=== PATIENT | male | born 1970 ===

== ENCOUNTER → 2021-04-23 | Outpatient (CLI) | payer OTHER ==
--- NOTE | 2021-04-23 16:07 | RAD ---
EXAM: Right elbow, 3 views. HISTORY: Pain. COMPARISON: None. FINDINGS: 3 views of the right elbow are obtained. There is no fracture, dislocation or subluxation. There is no joint effusion. IMPRESSION: No acute osseous finding. Electronically signed by: Nidhi Diallo MD (04/23/2021 4:05 PM) [id number]
== END ==
LOC: RAD 15:52
PROVIDERS: ATTEND Physician Assistant
DX: M25.521 Pain in right elbow (principal)
CPT/HCPCS: 73080

== ENCOUNTER 2021-05-17 10:58 | Emergency (ER) | payer BC, OTHER ==
[~2021-05-17] VITALS: Ht 175.3 cm; Wt 84.0 kg
--- NOTE | 2021-05-17 11:24 | EKG ---
[address] [address] Test Date: 2021-05-17 Test Time: 11:14:16 Pat Name: JAYME BRADLEY Department: Room: Gender: M Hospice Consultant: DULCE : 1970 Requested By: ROSE MARIE SUERO Order Number: [id number] Reading MD: Stalin Domingo MD Measurements Intervals [place] Rate: 68 P: 47 AK: 178 QRS: 70 QRSD: 96 T: 36 QT: 358 QTc: 385 Interpretive Statements SINUS RHYTHM Electronically Signed On 05-20-2021 9:30:57 SCOUT LEASER by Stalin Domingo MD
[2021-05-17] MEDS ORDERED: ASPIRIN 325 MG TABLET PO ONE (11:30)
[2021-05-17 11:41] LABS: BASO % 0 % (0-3); EOS # 0.1 x10^3/uL (0.0-0.7); EOS % 1 % (0-3); HEMATOCRIT 45.3 % (39.0-53.0); HEMOGLOBIN 14.8 g/dL (13.0-17.5); LYMPH # 1.7 x10^3/uL (1.0-4.8); LYMPH % 22 % (24-48); MEAN CORPUSCULAR HEMOGLOBIN 28 pg (25-35); MEAN CORPUSCULAR HGB CONC 33 g/dL (31-37); MEAN CORPUSCULAR VOLUME 86 fL (79-100); MONO # 0.7 x10^3/uL (0.0-1.1); MONO % 9 % (0-9); NEUT # 5.3 x10^3uL (1.8-7.7); NEUT % 68 % (31-73); PLATELET COUNT 216 x10^3/uL (140-400); RED CELL DISTRIBUTION WIDTH 13.7 % (11.5-14.5); WHITE BLOOD COUNT 7.8 x10^3/uL (4.0-11.0)
[2021-05-17 11:48] LABS: CALCIUM 9.4 mg/dL (8.5-10.1); GFR 79.4
[2021-05-17 11:49] LABS: BACTERIA,URINE 0 /HPF (0-FEW); BILIRUBIN,URINE NEG (NEG); CLARITY,URINE CLEAR; COLOR,URINE YELLOW; GLUCOSE,URINE NEG (NEG); NITRITE,URINE NEG (NEG); SQUAMOUS EPITHELIAL CELL,UR OCC /LPF; UROBILINOGEN,URINE 0.2 mg/dL (0.2 mg/dL); WBC,URINE OCC /HPF (0-4)
[2021-05-17 12:04] LABS: ALBUMIN 3.9 g/dL (3.4-5.0); ALBUMIN/GLOBULIN RATIO 1.2 (1.0-1.7); MAGNESIUM 2.2 mg/dL (1.8-2.4); TOTAL BILIRUBIN 0.3 mg/dL (0.2-1.0); TOTAL PROTEIN 7.1 g/dL (6.4-8.2)
--- NOTE | 2021-05-17 12:17 | PHYS DOC ---
Past History Past Medical History: Anxiety, Hypertension Past Surgical History: No Surgical History Smoking: Non-smoker Alcohol Use: Occasionally Drug Use: None General Adult EDM: Chief Complaint: CHEST PAIN HPI: HPI: Mr. Falcon is a 50 yo male with PMH of HTN who presents to the ED for left foot and left chest pain. Patient states the left foot pain initially started two and half weeks ago and while the doctor arranged an appointment, he was started on Aspirin 325 mg. While on aspirin, he started developing knots on the left foot near the toes and noticed some right hip pain. Two days ago, he was able to see his doctor whom prescribed valsartan to manage his hypertension. As the days p rogressed, he noticed worsening of the left foot pain along with chest pain. He states the chest pain is constant, dull in nature and travels to the left axilla and feels as if someone is sitting on him. In addition, patient is endorsing shortness of breath, right hip pain and generalized weakness. Review of Systems: Review of Systems: Constitutional: Denies fever or chills Eyes: Denies redness or eye pain HENT: Denies nasal congestion or sore throat Respiratory: Denies cough, endorses shortness of breath with inspiration Cardiovascular: Endorses chest pain or palpitations GI: Denies abdominal pain, nausea, or vomiting : Denies dysuria or hematuria Musculoskeletal: Endorses back pain or joint pain Integument: Denies rash or skin lesions Neurologic: Denies headache, focal weakness or sensory changes Complete systems were reviewed and found to be within normal limits, except as documented in this note. Current Medications: Current Meds: Current Medications Medications (Trade) Dose Ordered Sig/[facility] Start Time Stop Time Status Last Admin Dose Admin Aspirin (Fany Aspirin) 325 mg 1X ONCE 05/17/21 11:30 05/17/21 11:31 UNV Allergies: Allergies: penicillin Physical Exam: PE: Constitutional: Well developed, well nourished, no acute distress, non-toxic appearance. [] HENT: Normocephalic, atraumatic, bilateral external ears normal, oropharynx moist, no oral exudates, nose normal. [] Eyes: PERRLA, EOMI, conjunctiva normal, no discharge. [] Neck: Normal range of motion, no tenderness, supple, no stridor. [] Cardiovascular:Heart rate regular rhythm, no murmur [] Lungs & Thorax: Bilateral breath sounds clear to auscultation [] Abdomen: Bowel sounds normal, soft, no tenderness, no masses, no pulsatile masses. [] Skin: Warm, dry, no erythema, no rash. [] Back: No tenderness, no CVA tenderness. [] Extremities: No tenderness, no cyanosis, no clubbing, ROM intact, no edema. [] Neurologic: Alert and oriented X 3, normal motor function, normal sensory function, no focal deficits noted. [] Psychologic: Affect normal, judgement normal, mood normal. [] Current Patient Data: Labs: Laboratory Tests Test 05/17/21 11:21 05/17/21 11:23 White Blood Count 7.8 x10^3/uL (4.0-11.0) Red Blood Count 5.30 x10^6/uL (4.30-5.70) Hemoglobin 14.8 g/dL (13.0-17.5) Hematocrit 45.3 % (39.0-53.0) Mean Corpuscular Volume 86 fL (79-100) Mean Corpuscular Hemoglobin 28 pg (25-35) Mean Corpuscular Hemoglobin Concent 33 g/dL (31-37) Red Cell Distribution Width 13.7 % (11.5-14.5) Platelet Count 216 x10^3/uL (140-400) Neutrophils (%) (Auto) 68 % (31-73) Lymphocytes (%) (Auto) 22 % (24-48) L Monocytes (%) (Auto) 9 % (0-9) Eosinophils (%) (Auto) 1 % (0-3) Basophils (%) (Auto) 0 % (0-3) Neutrophils # (Auto) 5.3 x10^3uL (1.8-7.7) Lymphocytes # (Auto) 1.7 x10^3/uL (1.0-4.8) Monocytes # (Auto) 0.7 x10^3/uL (0.0-1.1) Eosinophils # (Auto) 0.1 x10^3/uL (0.0-0.7) Basophils # (Auto) 0.0 x10^3/uL (0.0-0.2) Sodium Level 140 mmol/L (136-145) Potassium Level 4.0 mmol/L (3.5-5.1) Chloride Level 103 mmol/L (98-107) Carbon Dioxide Level 31 mmol/L (21-32) Anion Gap 6 (6-14) Blood Urea Nitrogen 16 mg/dL (8-26) Creatinine 1.0 mg/dL (0.7-1.3) Estimated GFR (Cockcroft-Gault) 79.4 BUN/Creatinine Ratio 16 (6-20) Glucose Level 106 mg/dL (70-99) H Calcium Level 9.4 mg/dL (8.5-10.1) Magnesium Level Pending Total Bilirubin Pending Aspartate Amino Transferase (AST) Pending Alanine Aminotransferase (ALT) Pending Alkaline Phosphatase Pending Creatine Kinase Pending Creatine Kinase MB (Mass) Pending Creatine Kinase MB Relative Index Pending Troponin I High Sensitivity < 4 ng/L (4-75) L YT-Ddc-Y-Type Natriuretic Peptide Pending Total Protein Pending Albumin Pending Albumin/Globulin Ratio Pending Lipase Pending Urine Collection Type Unknown Urine Color Yellow Urine Clarity Clear Urine pH 6.0 Urine Specific [place] 1.025 Urine Protein Neg (NEG-TRACE) Urine Glucose (UA) Neg mg/dL (NEG) Urine Ketones (Stick) Neg mg/dL (NEG) Urine Blood Trace (NEG) Urine Nitrite Neg (NEG) Urine Bilirubin Neg (NEG) Urine Urobilinogen Dipstick 0.2 mg/dL (0.2 mg/dL) Urine Leukocyte Esterase Neg (NEG) Urine RBC 3-5 /HPF (0-2) Urine WBC Occ /HPF (0-4) Urine Squamous Epithelial Cells Occ /LPF Urine Bacteria 0 /HPF (0-FEW) Urine Mucus Mod /LPF Vital Signs: Vital Signs Date Time Temp Pulse Resp B/P (MAP) Pulse Ox O2 Delivery O2 Flow Rate FiO2 05/17/21 11:11 98.0 80 16 135/95 (108) 97 Room Air EKG: EKG: @11:14 Normal sinus rhythm, regular rate (68bpm), QRS 96ms, QT/QTc 358/385 ms, mild J point elevations at V2 and V3 without any reciprocal depression; no ST segment elevations Radiology/Procedures: Radiology/Procedures: PROCEDURE: VENOUS LOWER EXTREMITY LEFT EXAMINATION: US DPLX VENOUS EXTREMITY LOWER LT (LOWER EXTREMITY VENOUS ULTRASOUND) CLINICAL HISTORY: Left lower extremity pain. TECHNIQUE: Sonographic grayscale images obtained of the left lower extremity deep venous system with color flow Doppler, compression, and augmentation techniques as indicated. Images obtained and stored in a permanent archive. COMPARISON: None FINDINGS: No evidence of absent flow or incompressibility within the common femoral vein, femoral vein, or popliteal vein. Visualized calf veins appear patent on limited evaluation. IMPRESSION: No evidence of left lower extremity DVT. Electronically signed by: Gareth Contreras DO (05/17/2021 12:20 PM) [id number] PROCEDURE: FOOT LEFT 3V XR FOOT_LEFT 3 VIEWS History: Reason: pain/bruising, FOREFOOT, NO KNOWN INJURY / Spl. Instructions: / History: Technique: 3 views left foot Comparison: None. Findings: Normal alignment. No acute fracture. Well-corticated ossifications inferior to the cuboid. Accessory navicula. Impression: 1. No acute osseous abnormality. Electronically signed by: Mohan Mendieta DO (05/17/2021 12:23 PM) [id number] PROCEDURE: CHEST AP ONLY XR CHEST 1V History: Reason: chest pain / Spl. Instructions: / History: Comparison: None. Findings: No consolidation or pleural effusion. Normal heart size. No pneumothorax. Impression: 1. No acute cardiopulmonary process. Electronically signed by: Mohan Mendieta DO (05/17/2021 1:15 PM) [id number] Heart Score: C/O Chest Pain: Yes HEART Score for Chest Pain: HEART Score for Chest Pain Response (Comments) Value History Moderately Suspicious 1 ECG Normal 0 Age >45 - < 65 1 Risk Factors 1 or 2 Risk Factors 1 Total 3 Risk Factors: Risk Factors: DM, Current or recent (<one month) smoker, HTN, HLP, family history of CAD, obesity. Risk Scores: Score 0 - 3: 2.5% MACE over next 6 weeks - Discharge Home Score 4 - 6: 20.3% MACE over next 6 weeks - Admit for Clinical Observation Score 7 - 10: 72.7% MACE over next 6 weeks - Early Invasive Strategies Course & Med Decision Making: Course & Med Decision Making Mr. Falcon is a 50 yo male with PMH of HTN who presents to the ED for left foot and left chest pain. Upon admission, a EKG, CBC, CMP, LLE ultrasound and X-ray, troponins, D-dimer and chest X-ray were ordered. CBC and CMP did not display any abnormalities while EKG displayed Normal sinus rhythm, regular rate (68bpm), QRS 96ms, QT/QTc 358/385 ms, mild J point elevations at V2 and V3 without any reciprocal depression; no ST segment elevations. Pertinent Labs and Imaging studies reviewed. (See chart for details) [] Dragon Disclaimer: Dragon Disclaimer: This electronic medical record was generated, in whole or in part, using a voice recognition dictation system. Splinting Splinting : Location: Left foot Pre-Made Type: KARTHIK bandage Pre-Proc Neuro Vasc Exam: normal Post-Proc Neuro Vasc Exam: normal, unchanged from pre-exam Departure Departure: Impression: Primary Impression: Atypical chest pain Additional Impression: Hematoma of left foot Disposition: 01 HOME / SELF CARE / HOMELESS Condition: STABLE Referrals: DONOVAN TIPTON (PCP) Patient Instructions: Chest Pain (Nonspecific), Gnpr-ed-Tpej, Hematoma, Sfna-gi-Odor, Knee Wraps (Elastic Bandage) and RICE Additional Instructions: Take [id number] ibuprofen and or Tylenol for pain or discomfort. Ice area of swelling and bruising 20 minutes on then leave off for next 20 minutes. Repeat several times daily for the next 2 days. ROSE MARIE SUERO DO May 17, 2021 12:17
--- NOTE | 2021-05-17 12:23 | RAD ---
EXAMINATION: US DPLX VENOUS EXTREMITY LOWER LT (LOWER EXTREMITY VENOUS ULTRASOUND) CLINICAL HISTORY: Left lower extremity pain. TECHNIQUE: Sonographic grayscale images obtained of the left lower extremity deep venous system with color flow Doppler, compression, and augmentation techniques as indicated. Images obtained and store d in a permanent archive. COMPARISON: None FINDINGS: No evidence of absent flow or incompressibility within the common femoral vein, femoral vein, or popl iteal vein. Visualized calf veins appear patent on limited evaluation. IMPRESSION: No evidence of left lower extremity DVT. Electronically signed by: Gareth Contreras DO (05/17/2021 12:20 PM) [id number]
--- NOTE | 2021-05-17 12:26 | RAD ---
XR FOOT_LEFT 3 VIEWS History: Reason: pain/bruising, FOREFOOT, NO KNOWN INJURY / Spl. Instructions: / History: Technique: 3 views left foot Comparison: None. Findings: Normal alignment. No acute fracture. Well-corticated ossifications inferior to the cuboid. Accessory navicula. Impression: 1. No acute osseous abnormality. Electronically signed by: Mohan Mendieta DO (05/17/2021 12:23 PM) [id number]
--- NOTE | 2021-05-17 13:18 | RAD ---
XR CHEST 1V History: Reason: chest pain / Spl. Instructions: / History: Comparison: None. Findings: No consolidation or pleural effusion. Normal heart size. No pneumothorax. Impression: 1. No acute cardiopulmonary process. Electronically signed by: Mohan Mendieta DO (05/17/2021 1:15 PM) [id number]
[2021-05-17 15:32] VITALS: BP 153/87
== END 2021-05-17 15:33 | disposition home or self-care (01) ==
LOC: ER 10:58
DX: S90.32XA Contusion of left foot, initial encounter (principal); R07.89 Other chest pain; M25.551 Pain in right hip; F41.9 Anxiety disorder, unspecified; I10 Essential (primary) hypertension; X58.XXXA Exposure to other specified factors, initial encounter; Y93.89 Activity, other specified; Y92.89 Other specified places as the place of occurrence of the external cause; Y99.8 Other external cause status
CPT/HCPCS: 36415; 71045; 73630; 80053; 81001; 82553; 83690; 83735; 83880; 84484; 85025; 85379; 93005; 93971; 99285